=== PATIENT | female | born 1965 | race Caucasian/White ===

== ENCOUNTER 2017-10-05 19:05 | Emergency (ER) | payer BC ==
[2017-10-05 19:42] LABS: #Eosinphils 0.1 thou/uL (0.0-0.7); #Lymphocytes 2.3 thou/uL (1.20-3.40); #Monocytes 0.9 thou/uL (0.11-0.59); #Neutrophils 7.2 thou/uL (1.40-6.50); %Basophils 0.4 % (0.0-1.0); %Lymphocytes 22.3 % (21.0-51.0); %Monocytes 8.1 % (0.0-10.0); %Neutrophils 68.3 % (42.0-75.0); Hemoglobin 14.8 g/dL (12.0-16.0); Mean Corpuscular HGB CONC 35.1 g/dL (32.0-36.0); Mean Corpuscular Hemoglobin 29.1 pg (27.0-31.0); Mean Corpuscular Volume 82.8 fl (81.0-99.0); Mean Platelet Volume 9.8 fL (7.4-10.4); Platelet Count 235 thou/uL (130-400); RBC Distribution Width 12.2 % (11.5-14.5); White Blood Cell (WBC) Count 10.5 thou/uL (4.8-10.8)
[2017-10-05 19:59] LABS: ALT (SGPT) 30 U/L (8-55); AST (SGOT) 27 U/L (5-34); Albumin 4.3 g/dL (3.5-5.0); Alkaline Phosphatase 75 U/L (40-150); Anion Gap 20 mmol/L (10-20); BUN (Urea Nitrogen) 12 mg/dL (9.8-20.1); Bilirubin, Total 0.5 mg/dL (0.2-1.2); Calc. Creatinine Clearance 0 mL/min (70-130); Calcium 9.2 mg/dL (7.8-10.44); Carbon Dioxide 23 mmol/L (22-29); Chloride 102 mmol/L (98-107); Estimated GFR-MDRD 71; Globulin 2.8 g/dL (2.4-3.5); Glucose 87 mg/dL (70-105); Protein, Total 7.1 g/dL (6.0-8.3); Sodium 141 mmol/L (136-145)
[2017-10-05 20:29] LABS: Bilirubin Negative (Negative); Blood, Urine Negative (Negative); Clarity Clear (Clear); Glucose, Urine (Dipstick) Negative (Negative); Leukocyte Trace (Negative); Nitrite Negative (Negative); Protein, Urine (Dipstick) Negative (Neg-Trace); Urobilinogen 0.2 mg/dL (0.2-1.0); pH, Urine 5.5 (5.0-9.0)
[2017-10-05 20:31] LABS: Specific Gravity, Urine 1.003 (1.005-1.030)
[2017-10-05 20:33] LABS: Bacteria/HPF Rare-Few HPF (None Seen); RBC/HPF 0-3 HPF (0-3); Squamous Epithelial 0-3 HPF (0-3); WBC/HPF 0-3 HPF (0-3)
[2017-10-05] MEDS ORDERED: metroNIDAZOLE 250 MG TAB ONE (20:52)
[2017-10-05] MEDS ORDERED: Ciprofloxacin 500 MG TAB ONE (20:52)
--- NOTE | 2017-10-05 23:13 | CT ---
CT ABDOMEN AND PELVIS WITH CONTRAST: 10/05/[address] of the abdomen and pelvis was performed for evaluation of left lower quadrant pain. Axial s lices were acquired using IV contrast only. Oral contrast was deferred by request. Axial slices were acquired, then coronal reconstructions were done. The primary finding on this study is an area of inflammatory streaking around the left colon at the j unction of the lower descending colon and proximal sigmoid colon. The findings most likely represent diverticulitis, though there were not a plethora of diverticula noted in this patients colon. There i s no dilation of bowel. No free air was seen. There is a trace of free fluid in the pelvis on the lef t side. The lung bases are clear except for some minor dependent atelectasis. There is a question of a little pericardial fluid posteriorly, but I note that on the 2013 scan this area looked exactly the same so it does not concern me. The liver and spleen showed no acute findings. Mild prominence of the spleni c size is identical to 2013. The pancreas appears normal. Previously there was concern about the size of the common bile duct but there is none today. No definite gallbladder calcifications are seen, th ough on a few slices, there is some lucent areas in it. Lucent stones are a possibility but would be best demonstrated by ultrasound. The aorta, kidneys, and adrenal glands showed no acute findings. CT of the pelvis showed no pelvic masses, inflammatory changes other than those listed above around t he distal left colon, and there was no adenopathy of concern. IMPRESSION: Inflammatory change at he junction of the lower descending and proximal sigmoid colon. The findings m ost likely represent mild acute diverticulitis. If this does not improve over time, then further [facility] roenterology followup could be needed. POS: HOME
== END 2017-10-05 21:00 | disposition home or self-care (01) ==
LOC: BURERS 19:05
DX: K57.92 Diverticulitis of intestine, part unspecified, without perforation or abscess without bleeding (principal); E05.90 Thyrotoxicosis, unspecified without thyrotoxic crisis or storm
CPT/HCPCS: 36415; 74177; 80053; 81003; 81015; 85025